=== PATIENT | female | born 1990 | race Caucasian/White ===

== ENCOUNTER 2016-09-07 04:49 | Inpatient (IN) | payer OTHER ==
[2016-09-07] MEDS ORDERED: PRENATAL VITAM1 EA11 PO (05:52)
[2016-09-07 20:29] LABS: EOS % 0.1 % (0-7); HGB-HEMOGLOBIN 11.5 gm/dl (12.0-15.5); IMMATURE GRANULOCYTES ABSOLUTE 0.04 tho/cmm (0-0.03); IMMATURE GRANULOCYTES PERCENT 0.4 % (0-0.3); LYMPH % 11.7 % (20-45); LYMPH ABSOLUTE COUNT 1.3 tho/cmm (0.8-4.5); MCH (MEAN CORPUSCULAR HGB) 29.6 pg (28.0-32.0); MCHC MEAN CORPUSCULAR HGB CONC 33.8 % (32.0-36.0); MCV (MEAN CELL VOLUME) 87.4 fl (82.0-96.0); MEAN PLATELET VOLUME 9.7 cmc (9.4-12.4); MONO % 7.7 % (0-12); MONOCYTE ABSOLUTE COUNT 0.9 tho/cmm (0.0-1.2); NEUTROPHIL ABSOLUTE COUNT 8.9 tho/cmm (1.6-8.0); NEUTROPHIL-AUTOMATED 8.9 tho/cmm (1.6-8.0); NEUTROPHILS % 80.1 % (40-80); PLATELET COUNT 243 tho/cmm (150-450); RED BLOOD COUNT 3.89 mil/cmm (4.00-5.20); RED CELL DISTRIBUTION WIDTH 12.9 % (12.4-16.4); WHITE BLOOD COUNT 11.1 tho/cmm (4.0-10.0)
[2016-09-09 09:01] LABS: BASO % 0.2 % (0-2); EOS % 0.4 % (0-7); EOSINOPHIL ABSOLUTE COUNT 0.1 tho/cmm (0.0-0.7); HCT-HEMATOCRIT 27.8 % (34.0-49.0); HGB-HEMOGLOBIN 9.2 gm/dl (12.0-15.5); IMMATURE GRANULOCYTES ABSOLUTE 0.08 tho/cmm (0-0.03); IMMATURE GRANULOCYTES PERCENT 0.6 % (0-0.3); LYMPH % 17.7 % (20-45); LYMPH ABSOLUTE COUNT 2.3 tho/cmm (0.8-4.5); MCH (MEAN CORPUSCULAR HGB) 29.6 pg (28.0-32.0); MCHC MEAN CORPUSCULAR HGB CONC 33.1 % (32.0-36.0); MCV (MEAN CELL VOLUME) 89.4 fl (82.0-96.0); MEAN PLATELET VOLUME 9.6 cmc (9.4-12.4); MONO % 13.1 % (0-12); MONOCYTE ABSOLUTE COUNT 1.7 tho/cmm (0.0-1.2); NEUTROPHIL ABSOLUTE COUNT 8.7 tho/cmm (1.6-8.0); NEUTROPHIL-AUTOMATED 8.7 tho/cmm (1.6-8.0); PLATELET COUNT 208 tho/cmm (150-450); RED BLOOD COUNT 3.11 mil/cmm (4.00-5.20); RED CELL DISTRIBUTION WIDTH 13.4 % (12.4-16.4); WHITE BLOOD COUNT 12.8 tho/cmm (4.0-10.0)
[2016-09-10] MEDS ORDERED: IBUPROFEN800 M1 PO (06:57)
== END 2016-09-10 13:45 | DRG 775 ==
LOC: LDR 04:49 → OBGE 09-08 14:23
PROVIDERS: Registered Nurse Lactation Consultant; ADMIT Advanced Practice Midwife
PROC: 0U7C7ZZ Dilation of Cervix, Via Natural or Artificial Opening (ICD-10-PCS; 2016-09-07)
PROC: 10E0XZZ Delivery of Products of Conception, External Approach (ICD-10-PCS; principal; 2016-09-08)
PROC: 0KQM0ZZ Repair Perineum Muscle, Open Approach (ICD-10-PCS; 2016-09-08)
PROC: 10907ZC Drainage of Amniotic Fluid, Therapeutic from Products of Conception, Via Natural or Artificial Opening (ICD-10-PCS; 2016-09-08)
DX: O48.0 Post-term pregnancy (principal); O71.7 Obstetric hematoma of pelvis; O99.824 Streptococcus B carrier state complicating childbirth; Z3A.41 41 weeks gestation of pregnancy; Z37.0 Single live birth; O70.1 Second degree perineal laceration during delivery
CPT/HCPCS: C1726; J2540; J2590